=== PATIENT | male | born 1945 ===

== ENCOUNTER → 2022-04-29 14:47 | Outpatient (BNVA) | payer SELFPAY | PROVIDERS: PCP Family Medicine; Visit Provider Family Medicine | DX: Z00.00 Encounter for general adult medical examination without abnormal findings (principal); N40.0 Benign prostatic hyperplasia without lower urinary tract symptoms | CPT/HCPCS: 80053; 80061 ==

== ENCOUNTER → 2022-05-11 12:08 | Outpatient (BNVA) | payer MEDICARE, SELFPAY | PROVIDERS: PCP Family Medicine; Visit Provider Clinical Nurse Specialist Adult Health | DX: R35.0 Frequency of micturition (principal); N30.00 Acute cystitis without hematuria | CPT/HCPCS: 81000; 87086 ==

== ENCOUNTER → 2023-07-11 12:29 | Outpatient (BNVA) | payer MEDICARE, SELFPAY | PROVIDERS: PCP Family Medicine; Visit Provider Family Medicine | DX: Z00.00 Encounter for general adult medical examination without abnormal findings (principal); Z13.6 Encounter for screening for cardiovascular disorders; E03.9 Hypothyroidism, unspecified | CPT/HCPCS: 80053; 80061; 82607; 84443; 85025 ==

== ENCOUNTER → 2024-08-02 10:25 | Outpatient (BNVA) | payer MEDICARE, SELFPAY | PROVIDERS: PCP Family Medicine; Visit Provider Family Medicine | DX: Z00.00 Encounter for general adult medical examination without abnormal findings (principal) | CPT/HCPCS: 80053; 80061 ==

== ENCOUNTER → 2024-11-08 09:47 | Outpatient (BNVA) | payer MEDICARE, SELFPAY | PROVIDERS: PCP Family Medicine | DX: J06.9 Acute upper respiratory infection, unspecified (principal) | CPT/HCPCS: 87400; 87426 ==

== ENCOUNTER 2024-11-12 11:14 | Inpatient (IN) | payer MEDICARE, SELFPAY ==
[2024-11-12] VITALS (19 sets, daily range): BP systolic 92–160; BP diastolic 61–95; PULSE 84–121; RESP 16–18; TEMP 37.2–39.5; O2SAT 90–94; BMI 24.4; BMI 24.8
--- NOTE | 2024-11-12 11:23 | XRR_ITS ---
PROCEDURE INFORMATION: Exam: XR Chest Exam date and time: 11/12/2024 11:32 AM Age: 78 years old Clinical indication: Other: Weakness TECHNIQUE: Imaging protocol: Radiologic exam of the chest. Views: 1 view. COMPARISON: No relevant prior studies available. FINDINGS: Lungs: Suboptimal pulmonary expansion with associated accentuation of bronchovascular markings. Mild ill-defined basilar pulmonary opacities are nonspecific in the setting. Mild left basilar pneumonitis can not be excluded. Pleural spaces: No pleural effusion. Heart/Mediastinum: Cardiomediastinal contours accentuated by low lung volumes and AP technique. Bones/joints: Moderate degenerative change present in the spine. XR/XR chest 1V portable [id number] IMPRESSION: Limited technique with low lung volumes; mild left basilar pneumonitis can not be excluded.
[2024-11-12 11:57] LABS: Basophils % 0.3 %; Hematocrit 46.4 % (37-53); Lymphocytes # 0.6 10^3/uL (0.8-4.8); Mean Corpuscular HGB Conc 33.8 g/dL (30-55); Mean Corpuscular Hemoglobin 26.7 pg (27-33); Mean Corpuscular Volume 78.9 fl (82-101); Mean Platelet Volume 11.1 fL (7.4-10.4); Monocytes # 0.2 10^3/uL (0.2-0.9); Monocytes % 6.1 %; Neutrophils # 2.88 10^3/uL (1.8-7.7); Neutrophils % 76.3 %; Nucleated Red Blood Cells % 0 %; Platelet Count 49 10^3/cmm (157-399); Red Blood Count 5.88 10^6/uL (3.85-5.65); Red Cell Distribution Width 14.4 % (12.1-15.1); White Blood Count 3.77 10^3/uL (3.29-11.43)
--- NOTE | 2024-11-12 11:59 | ECG_ITS ---
[facility] Test Date: 2024-11-12 Pat Name: Wilder Somers Department: Room: Gender: Male Stone Cutter: : 1945 Requested By: Olga Jefferson Order Number: [id number] Angie MD: Jason Starks M.D. Measurements Intervals [place] Rate: 79 P: 76 DE: 147 QRS: 89 QRSD: 90 T: 71 QT: 321 QTc: 369 Interpretive Statements SINUS RHYTHM No previous ECG available for comparison Electronically Signed On 11-12-2024 21:55:53 CDT by Jason Starks M.D. [email or web address]
[2024-11-12 12:24] LABS: Alanine Aminotransferase 176 U/L (0-41); Albumin Level 3.1 g/dL (3.5-5.2); Alkaline Phosphatase 187 U/L (40-130); Anion Gap 15.5 (5-19); Aspartate Amino Transferase 215 U/L (0-40); Blood Urea Nitrogen 18 mg/dL (8-23); Calcium 7.9 mg/dL (8.5-10.5); Carbon Dioxide 23 mmol/L (22-29); Chloride 94 mmol/L (98-107); Creatinine Clr Calc Pharmacy 69.3165; Glucose 114 mg/dL (65-115); Lipase 20 U/L (13-60); Osmolality Calculated 269 mOsm/kg (285-295); Potassium 4.5 mmol/L (3.5-5.1); Sodium 128 mmol/L (136-145); Thyroid Stimulating Hormone 4.58 uIU/mL (0.27-4.20); Total Bilirubin 0.7 mg/dL (0.15-1.2); Total Protein 6.1 g/dL (6.6-8.7)
[2024-11-12 12:29] LABS: Slide Review Slide Review Perform
[2024-11-12 12:43] LABS: Creatine Phosphokinase 130 U/L (39-308)
[2024-11-12 12:50] LABS: Procalcitonin 0.84 ng/mL (0-0.5)
[2024-11-12 13:00] LABS: Lactic Sepsis W/Reflex 1.9 mmol/L (0.5-2.2)
--- NOTE | 2024-11-12 13:50 | ED_ITS ---
HPI - Weakness 2 General: Chief complaint: Weakness Stated complaint: weakness, nausea, dehydration Time Seen by Provider: 11/12/24 13:28 History of Present Illness: 78-year-old male presents emergency room fever and shortness of breath. Patient nonproductive cough he was seen last week tested for COVID which she reports was negative he still having symptoms his symptoms gotten progressively worse. Vomited 4 times today's still feeling very nauseous. Denies any chest pain. Is otherwise quite healthy man. Associated symptoms: Denies chest pain, chills, dysuria or fever(s) Review of Systems 2 Const: Denies: fever(s) or chills Card: Denies: chest pain Resp: Reports: dyspnea and non-productive cough GI: Denies: abdominal pain : Denies: dysuria, urinary frequency or urinary urgency Musc: Denies: neck pain or back pain Skin/Breast: Denies: rash PFSH ED 2 PFSH: Medical History Prostatic hypertrophy Surgical History Hx of cataract surgery Family History Other CAD (coronary artery disease) Denies family history of Diabetes Hyperlipidemia Hypertension Social History Smoking and tobacco/nicotine status: never used tobacco/nicotine Alcohol intake: current Alcohol intake frequency: holidays/special occasions only Physical Exam 2 Const: GENERAL APPEARANCE: cooperative ORIENTATION/CONSCIOUSNESS: Yes awake, Yes oriented to person, Yes oriented to place and Yes oriented to time HENMT: COMMON NORMALS: normocephalic, atraumatic and hearing grossly normal bilaterally HEAD & SCALP: normocephalic and atraumatic Resp: COMMON NORMALS: normal respiratory effort, No retractions, No use of accessory muscles and clear to auscultation bilaterally AUSCULTATION: clear to auscultation bilaterally Cardio: COMMON NORMALS: regular rate, regular rhythm and No murmurs present (Cardio) RATE: regular rate RHYTHM: regular rhythm GI: COMMON NORMALS: Soft to palpation and No hepatosplenomegaly present A USCULTATION: Yes normoactive bowel sounds PALPATION: Yes Soft to palpation, No Tenderness to palpation present (GI), No Guarding due to palpation present (GI) and Yes No hepatosplenomegaly present Extremity: COMMON NORMALS: normal to inspection, capillary refill normal, no clubbing, cyanosis or edema, no calf tenderness and no pedal edema Neuro: SENSORIUM/ORIENTATION: Yes oriented to person, Yes oriented to place and Yes oriented to time Skin: COMMON NORMALS: no rashes or lesions noted GENERAL SKIN EXAM: no rashes or lesions noted Course 2 Vital Signs: Vital signs: Vital Signs Temperature 98.1 F 11/13/24 03:37 Pulse Rate 76 11/13/24 03:37 Respiratory Rate 17 11/13/24 03:37 Blood Pressure 126/72 11/13/24 03:37 Pulse Oximetry 94 11/13/24 03:37 Oxygen Delivery Me thod Room Air 11/12/24 21:03 Oxygen Flow Rate 2 11/12/24 19:40 MDM - Weakness Medical Decision Making No leukocytosis. Patient has trace bilateral pleural fluid on his CT. Chest x- ray shows mild left basilar pneumonitis. Liver enzymes are elevated but gallbladder ultrasound was negative. No other liver abdominal pathology noted on CT of the abdomen. He is not requiring oxygen however he does not normally at his baseline. Will place him on observation started on IV antibiotics. BUN/creatinine normal. Patient did have some mild ketones in his urine. Patient has some mild hyponatremia as well as thrombocytopenia with a platelet count of 48. He denies a drinking. Admit patient started IV antibiotics. Fluids initiated in the emergency room. Also added tick panel which is a send out hepatitis panel was negative. Flu COVID RSV also negative. Lab Data 11/13/24 05:08 11/13/24 05:08 Radiology Impressions Chest X-Ray 11/12/24 11:23 IMPRESSION: Limited technique with low lung volumes; mild left basilar pneumonitis can not be excluded. Abdomen/Pelvis CT 11/12/24 13:58 IMPRESSION: 1. Markedly enlarged prostate. Recommend correlation PSA. 2. Mild hepatomegaly with fatty liver. 3. Trace bilateral pleural fluid with bibasilar atelectasis. 4. 6 mm enhancing pancreatic lesion. Recommend 6-month follow-up contrast- enhanced CT abdomen pelvis with pancreatic protocol. 5. Rectosigmoid constipation. 6. RIGHT renal cyst measuring two-point 6:00 p.m. 7. Small esophageal hiatal hernia. Gallbladder Ultrasound 11/12/24 13:59 IMPRESSION: 1. Negative gallbladder. 2. No hepatobiliary duct dilatation. Laboratory Results WBC 3.77 10^3/uL (3.29-11.43) 11/12/24 11:49 RBC 5.88 10^6/uL (3.85-5.65) H 11/12/24 11:49 Hgb 15.70 g/dL (11.27-16.99) 11/12/24 11:49 Hct 46.4 % (37-53) 11/12/24 11:49 MCV 78.9 fl (82-101) L 11/12/24 11:49 MCH 26.7 pg (27-33) L 11/12/24 11:49 MCHC 33.8 g/dL (30-55) 11/12/24 11:49 RDW 14.4 % (12.1-15.1) 11/12/24 11:49 Plt Count 49 10^3/cmm (157-399) L 11/12/24 11:49 MPV 11.1 fL (7.4-10.4) H 11/12/24 11:49 Neut % (Auto) 76.3 % 11/12/24 11:49 Lymph % (Auto) 17.0 % 11/12/24 11:49 [place] % (Auto) 6.1 % 11/12/24 11:49 Eos % (Auto) 0.0 % 11/12/24 11:49 Baso % (Auto) 0.3 % 11/12/24 11:49 Neut # (Auto) 2.88 10^3/uL (1.8-7.7) 11/12/24 11:49 Lymph # (Auto) 0.6 10^3/uL (0.8-4.8) L 11/12/24 11:49 [place] # (Auto) 0.2 10^3/uL (0.2-0.9) 11/12/24 11:49 Eos # (Auto) 0.0 10^3/uL (0.0-0.8) 11/12/24 11:49 Baso # (Auto) 0.0 10^3/uL (0.0-0.1) 11/12/24 11:49 Nucleated RBC % (auto) 0 % 11/12/24 11:49 Nucleated RBCs # 0.0 /100WBC 11/12/24 11:49 Sodium 128 mmol/L (136-145) L 11/12/24 11:49 Potassium 4.5 mmol/L (3.5-5.1) 11/12/24 11:49 Chloride 94 mmol/L (98-107) L 11/12/24 11:49 Carbon Dioxide 23 mmol/L (22-29) 11/12/24 11:49 Anion Gap 15.5 (5-19) 11/12/24 11:49 BUN 18 mg/dL (8-23) 11/12/24 11:49 Creatinine 1.0 mg/dL (0.7-1.2) 11/12/24 11:49 GFR Calculation Not Reportable 11/12/24 11:49 Glucose 114 mg/dL (65-115) 11/12/24 11:49 Estimat Average Glucose 131 11/12/24 11:49 Hemoglobin A1c 6.2 % (4.0-6.0) H 11/12/24 11:49 Calculated Osmolality 269 mOsm/kg (285-295) L 11/12/24 11:49 Lactic Acid 2.0 mmol/L (0.5-2.2) 11/12/24 15:40 Calcium 7.9 mg/dL (8.5-10.5) L 11/12/24 11:49 Total Bilirubin 0.7 mg/dL (0.15-1.2) 11/12/24 11:49 AST 215 U/L (0-40) H 11/12/24 11:49 ALT 176 U/L (0-41) H 11/12/24 11:49 Alkaline Phosphatase 187 U/L (40-130) H 11/12/24 11:49 Creatine Kinase 130 U/L (39-308) 11/12/24 11:49 C-Reactive Protein 121.3 mg/L (0.0-4.9) H 11/12/24 11:49 Total Protein 6.1 g/dL (6.6-8.7) L 11/12/24 11:49 Albumin 3.1 g/dL (3.5-5.2) L 11/12/24 11:49 Globulin 3.0 g/dL (1.3-4.6) 11/12/24 11:49 Lipase 19 U/L (13-60) 11/12/24 11:49 Lipase 20 U/L (13-60) 11/12/24 11:49 Lipase 20 U/L (13-60) 11/12/24 11:49 Procalcitonin 0.84 ng/mL (0-0.5) H 11/12/24 11:49 TSH 4.58 uIU/mL (0.27-4.20) H 11/12/24 11:49 Urine Color Dark yellow (Yellow) A 11/12/24 13:30 Urine Appearance Cloudy (CLEAR) A 11/12/24 13:30 Urine pH 5.5 (5-7) 11/12/24 13:30 Ur Specific [place] 1.031 (1.005-1.030) H 11/12/24 13:30 Urine Protein 2+ (Negative) A 11/12/24 13:30 Urine Glucose (UA) Negative (Normal) 11/12/24 13:30 Urine Ketones 2+ (Negative) H 11/12/24 13:30 Urine Blood 1+ (Negative) A 11/12/24 13:30 Urine Nitrate Negative (Negative) 11/12/24 13:30 Urine Bilirubin 1+ (Negative) H 11/12/24 13:30 Urine Urobilinogen 1.0 mg/dL (Negative) 11/12/24 13:30 Ur Leukocyte Esterase Trace (Negative) A 11/12/24 13:30 Urine RBC 0-2 /hpf (0-2) 11/12/24 13:30 Urine WBC 0-5 /hpf (0-5) 11/12/24 13:30 Ur Squamous Epith Cells 6-10 /hpf (0-5) 11/12/24 13:30 Amorphous Sediment Not Reportable 11/12/24 13:30 Urine Bacteria None seen /hpf (NONE) 11/12/24 13:30 Hyaline Casts 12.41 /lpf 11/12/24 13:30 Hep Bs Antigen Non-reactive (Nonreactive) 11/12/24 17:35 Hep B Core IgM Ab Non-reactive (Nonreactive) 11/12/24 17:35 Hepatitis C Antibody Non-reactive (Nonreactive) 11/12/24 17:35 HIV 1&2 Ab & HIV 1 Ag Non-reactive (Non-Reactiv) 11/12/24 11:49 HIV 1&2 Antibody Non-reactive (Non-Reactiv) 11/12/24 11:49 Influenza A (PCR) Negative (Negative) 11/12/24 15:35 Influenza Type B (PCR) Negative (Negative) 11/12/24 15:35 RSV (PCR) Negative (Negative) 11/12/24 15:35 SARS-CoV-2 (PCR) Negative (Negative) 11/12/24 15:35 All radiology interpretation(s) finalized by discharge Discharge Plan Discharge Patient Disposition: Admitted As Inpatient Admit Provider: Harjinder Villareal Clinical Impression: Pneumonia, Hyponatremia, Elevated liver enzymes, Thrombocytopenia, Hypoxia Condition: Stable Coding Level of Care Code ED 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
--- NOTE | 2024-11-12 13:58 | CT_ITS ---
WS: [id number] CT ABDOMEN PELVIS TECHNIQUE: Contrast-enhanced CT of the abdomen and pelvis with coronal and sagittal reformatted images. CLINICAL INFORMATION: abd pain COMPARISON: None. DLP: 647.[address] scans at [facility] use at least one of these dose optimization techniques: automated exposure control; mA and/or kV adjustment per patient size (includes targeted exams where dose is matched to clinical indication); or iterative reconstruction. FINDINGS: Fatty liver. Normal spleen. Small esophageal hiatal hernia. Normal portal vein and splenic vein. Small enhancing lesion in the pancreas measuring 6 mm. Adrenal glands are normal. Celiac and SMA are patent. Tiny pleural effusions. Slight bibasilar atelectasis RIGHT greater than LEFT. Normal renal parenchymal enhancement. No hydronephrosis. RIGHT renal cyst. Normal caliber abdominal aorta. Aortic calcification. Markedly enlarged prostate measuring 6.9 cm. Rectosigmoid constipation. Sigmoid diverticulosis. No evidence of acute diverticulitis. Fat-containing LEFT inguinal hernia. CT/CT abdomen pelvis w con* [id number] IMPRESSION: 1. Markedly enlarged prostate. Recommend correlation PSA. 2. Mild hepatomegaly with fatty liver. 3. Trace bilateral pleural fluid with bibasilar atelectasis. 4. 6 mm enhancing pancreatic lesion. Recommend 6-month follow-up contrast-enha nced CT abdomen pelvis with pancreatic protocol. 5. Rectosigmoid constipation. 6. RIGHT renal cyst measuring two-point 6:00 p.m. 7. Small esophageal hiatal hernia.
[2024-11-12 13:59] LABS: Bilirubin Urine 1+ (Negative); Blood Urine 1+ (Negative); Glucose Urine UA Negative (Normal); Ketones Urine 2+ (Negative); Leukocyte Esterase Urine Trace (Negative); Nitrate Urine Negative (Negative); Protein Urine 2+ (Negative); Urine Appearance Cloudy (CLEAR); Urine Color Dark Yellow (Yellow); pH Urine 5.5 (5-7)
--- NOTE | 2024-11-12 13:59 | US_ITS ---
WS: [id number] RIGHT UPPER QUADRANT ULTRASOUND HISTORY: elevated LFTs COMPARISON: CT 11/12/2024 Liver: 15.4 cm in length. Normal size liver and echogenicity. No bile duct dilatation or mass. Portal Vein: Normal hepatopetal flow with monophasic waveform. Gallbladder: Normally distended gallbladder with no stones or wall thickening. CBD: 0.4 cm Pancreas: Obscured. Right kidney: 9.4 cm in length. Normal size and echogenicity. No hydronephrosis or mass. Aorta and IVC: Unremarkable abdominal aorta and IVC. No ascites. US/US gall bladder [id number] IMPRESSION: 1. Negative gallbladder. 2. No hepatobiliary duct dilatation.
[2024-11-12 14:04] LABS: Add Urine Microscopic? YES; Bacteria Urine None Seen /hpf; Hyaline Casts Urine 12.41 /lpf; RBC Urine 0-2 /hpf (0-2); WBC Urine 0-5 /hpf (0-5)
[2024-11-12 14:13] LABS: Specific Gravity, Urine 1.031 (1.005-1.030)
[2024-11-12] MEDS: iohexol 350 mg/mL 500 mL Btl (per mL) IV (14:19)
[2024-11-12 14:32] LABS: Lipase 20 U/L (13-60)
--- NOTE | 2024-11-12 15:52 | PC.NURSE ---
O2 sat dropping to 88%, placed pt on 2L NC, saturation improved to 92%
[2024-11-12 16:32] LABS: Influenza A NEGATIVE (Negative); Influenza B NEGATIVE (Negative); Respiratory Syncytial Virus Ce NEGATIVE (Negative); SARS-CoV-2 PCR NEGATIVE (Negative)
[2024-11-12] MEDS: sodium chloride 0.9% 1,000 ML 999 ML IV (16:53)
--- NOTE | 2024-11-12 17:44 | P.HP_ITS ---
Providers/Chief Complaint 2 Primary Care Provider: Moose Olivas DO Chief Complaint: weakness, nausea, dehydration History of Present Illness Wilder Somers is a 78 year old male with past medical history of BPH, who presents [facility] due to a few day history of fevers, fatigue, malaise, confusion, cough. Currently patient is alert oriented x 3, following all commands, responses are bit delayed, does look a bit dazed, he is having a fever, according to patient and his , for the last few days he has been having fevers, fatigue, malaise, he has had nauseous episodes, does report history of tick bite, a few days ago, in his right leg, no other rashes but is not uncommon for him to have ticks, he does report neck pain, and stiffness, no chest pain, no palpitations, no dysuria, no flank pain, abdominal pain, no diarrhea, recent travel, no sick contacts, has not had his pneumonia vaccination, did receive the first Moderna vaccine. He was seen in the walk-in clinic 11/08/2024 complaining of fevers, headache, nonproductive cough, Review of Systems 2 Const: Reports: fever(s), chills, fatigue and malaise Card: Denies: chest pain Resp: Denies: dyspnea GI: Reports: nausea and vomiting; Denies: abdominal pain : Denies: flank pain Musc: Reports: neck pain; Denies: back pain Neuro: Reports: confusion; Denies: headache(s), numbness in extremities, weakness in extremities or dizziness Medications/Allergies Home Medications ?Medication ?Instructions ?Recorded ?Confirmed ?Last Taken ?Type mupirocin 2 % topical ointment 1 applic topical BID [place] N Skin 11/12/24 11/12/24 Unknown History Irritation tamsulosin 0.4 mg capsule 0.4 mg PO QPM prostate 11/1211/12/24 11/11/24 History Allergies Allergy/AdvReac Type Severity Reaction Status Date / Time No Known Allergies Allergy Verified 11/08/24 09:40 PFSH Acute 2 PFSH: Medical History Prostatic hypertrophy Surgical History Hx of cataract surgery Family History Other CAD (coronary artery disease) Denies family history of Diabetes Hyperlipidemia Hypertension Social History Smoking and tobacco/nicotine status: never used tobacco/nicotine Alcohol intake: current Alcohol intake frequency: holidays/special occasions only Vitals/I&O/Wt Last Vital Signs Temp 102.5 F H 11/12/24 11:52 Pulse 110 H 11/12/24 17:36 Resp 16 11/12/24 17:36 BP 137/84 11/12/24 17:36 Pulse Ox 92 11/12/24 17:36 O2 Del Method Nasal Cannula 11/12/24 16:53 O2 Flow Rate 2 11/12/24 16:53 Weight last 48 hrs Weight 81.647 kg Physical Exam 2 Const: COMMON NORMALS: no acute distress and patient oriented x3 HENMT: COMMON NORMALS: normocephalic HEAD & SCALP: normocephalic Eye: COMMON NORMALS: Equal, round and reactive pupils present and EOMs intact bilaterally Neck/C-Spine: COMMON NORMALS: no JVD Lymph: LYMPHATIC: no lymphadenopathy noted OTHER: Nuchal rigidity present kernig sign negative brudunki negative Resp: COMMON NORMALS: normal respiratory effort, No retractions, No use of accessory muscles and clear to auscultation bilaterally AUSCULTATION: clear to auscultation bilaterally Cardio: COMMON NORMALS: no JVD, regular rate, regular rhythm, S1 normal heart sound present and S2 normal heart sound present RATE: regular rate RHYTHM: regular rhythm HEART SOUNDS: S1 normal heart sound present and S2 normal heart sound present GI: COMMON NORMALS: Normal to inspection, nondistended, normoactive bowel sounds present, Soft to palpation and non-tender Extremity: COMMON NORMALS: no calf tenderness and no pedal edema Neuro: COMMON NORMALS: patient oriented x3 and CN's II-XII intact bilaterally Psych: COMMON NORMALS: mental status grossly normal Skin: NARRATIVE SKIN EXAM: Sepsis examination DP PT pulses palpable, cap refill less than 2 seconds, no mottling, patient is septic, sepsis examination done 11/12/2024 at 5 PM Data 11/12/24 11:49 11/12/24 11:49 Micro: Microbiology 11/12/24 15:43 Blood Culture - Preliminary Blood SPECIMEN COLLECTED 11/12/24 15:40 Blood Culture - Preliminary Blood SPECIMEN COLLECTED A&P Assessment and plan (1) Tick-borne encephalitis: (2) Meningitis: (3) Pneumonia: (4) Acute encephalopathy: (5) Thrombocytopenia: (6) Transaminitis: (7) Sepsis: (8) Hyponatremia: Plan Acute hyponatremia - Likely secondary to dehydration - Monitor on IV fluids Thrombocytopenia - Likely from tickborne illness - HIV, acute hep panel - Monitor Acute encephalopathy - Multifactorial - Tickborne illness, concerns for tickborne encephalitis - Other possibilities include bacterial meningitis - Pneumonia - Monitor mentation Tickborne illness - Concern for tickborne encephalitis - With thrombocytopenia, transaminitis, tick bite Plan - Tick panel ordered - Start doxycycline Acute bacterial meningitis - Patient has encephalopathy, - Nuchal rigidity - Fevers, headache Plan - Vancomycin - Ceftriaxone - Ampicillin - Start Decadron - Ordered lumbar puncture - Monitor mentation closely Concerns for pneumonia - See chest x-ray shows bibasilar atelectasis, but no focal consolidation - Is requiring 2 L - Sputum culture - Blood culture - Vanco mycin - Ceftriaxone Full code SCDs for DVT prophylaxis, Lovenox relatively contraindicated given thrombocytopenia PDMP PDMP Reviewed: Not Reviewed Attestations 2 Medical Necessity Statement*: Patient requires hospitalization, inpatient, greater than 2 midnights, for meningitis, tickborne illness, tickborne encephalitis, pneumonia, transaminitis, thrombocytopenia Diagnoses 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
[2024-11-12] MEDS: dexamethasone 10 mg/mL INJ IVP ×2 (17:55→22:51)
[2024-11-12] MEDS: VANCOMYCIN ADD-Vantage 1,000 MG in 0.9% NaCl ADD-Vantage 250 ML 250 MG IV (17:58)
[2024-11-12 18:07] LABS: C Reactive Protein 121.3 mg/L (0.0-4.9); Lipase 19 U/L (13-60)
[2024-11-12] MEDS: acetaminophen 325 mg Tablet 650 MG PO (18:48)
[2024-11-12] MEDS: cefTRIAXone 2,000 mg SDV 2000 MG IVP (18:49)
[2024-11-12] MEDS: ampicillin 2,000 MG in sodium chloride 0.9% (plus) 50 ML 100 MG IV ×2 (18:57→21:53)
[2024-11-12 19:04] LABS: HIV 1 & 2 Antibody Non-Reactive (Non-Reactiv); HIV 1 & 2 Antigen Non-Reactive (Non-Reactiv)
[2024-11-12] MEDS: sodium chloride 0.9% 1,000 ML 125 ML IV (19:31)
[2024-11-12] MEDS: pantoprazole 40 mg SDV IVP (19:36)
[2024-11-12] MEDS: tamsulosin 0.4 mg Capsule PO (19:36)
[2024-11-12] MEDS: doxycycline 100 MG in sodium chloride 0.9% (plus) 100 ML IV (19:36)
[2024-11-12 20:48] LABS: Estmated Average Glucose 131; Hemoglobin A1C 6.2 % (4.0-6.0)
--- NOTE | 2024-11-12 21:22 | PHA.VACGOAL ---
Vancomycin Goal - Goal Vancomycin Goal:: 15-20 mg/L Vancomycin Indication:: Pneumonia - Therapy Current therapy:: Ampicillin IV, Other Antibiotic (CEFTRIAXONE/DOXYCYCLINE) Day of therpy:: Day [1]of [] Actual body weight (kg): 83.007 kg - Data Labs: WBC 3.77 10^3/uL (3.29-11.43) 11/12/24 11:49 RBC 5.88 10^6/uL (3.85-5.65) H 11/12/24 11:49 Hgb 15.70 g/dL (11.27-16.99) 11/12/24 11:49 Hct 46.4 % (37-53) 11/12/24 11:49 MCV 78.9 fl (82-101) L 11/12/24 11:49 MCH 26.7 pg (27-33) L 11/12/24 11:49 MCHC 33.8 g/dL (30-55) 11/12/24 11:49 RDW 14.4 % (12.1-15.1) 11/12/24 11:49 Sodium 128 mmol/L (136-145) L 11/12/24 11:49 Potassium 4.5 mmol/L (3.5-5.1) 11/12/24 11:49 Chloride 94 mmol/L (98-107) L 11/12/24 11:49 Carbon Dioxide 23 mmol/L (22-29) 11/12/24 11:49 Anion Gap 15.5 (5-19) 11/12/24 11:49 BUN 18 mg/dL (8-23) 11/12/24 11:49 Creatinine 1.0 mg/dL (0.7-1.2) 11/12/24 11:49 GFR Calculation Not Reportable 11/12/24 11:49 Treatment plan:: new consult Regimen:: New start vancomycin for pneumonia. No prior vancomycin history found. Started on maintenance dose of 1000 mg q12h.
[2024-11-12 21:31] LABS: Hepatitis B Core IgM Non-Reactive (Nonreactive); Hepatitis B Surface Antigen Non-Reactive (Nonreactive); Hepatitis C Virus Antibody Non-Reactive (Nonreactive)
[2024-11-13] VITALS (8 sets, daily range): BP systolic 121–136; BP diastolic 68–79; PULSE 70–97; RESP 16–18; TEMP 36.6–37.3; O2SAT 90–94
[2024-11-13] MEDS: ampicillin 2,000 MG in sodium chloride 0.9% (plus) 50 ML 100 MG IV ×6 (01:18→21:13)
[2024-11-13] MEDS: sodium chloride 0.9% 1,000 ML 125 ML IV ×2 (04:44)
[2024-11-13] MEDS: dexamethasone 10 mg/mL INJ IVP ×4 (04:48→23:12)
[2024-11-13] MEDS: VANCOMYCIN ADD-Vantage 1,000 MG in 0.9% NaCl ADD-Vantage 250 ML 250 MG IV ×2 (04:49→18:11)
[2024-11-13 05:20] LABS: Basophils % 0.2 %; Lymphocytes # 1.3 10^3/uL (0.8-4.8); Lymphocytes % 23.6 %; Mean Corpuscular HGB Conc 33.8 g/dL (30-55); Mean Corpuscular Hemoglobin 27.3 pg (27-33); Mean Corpuscular Volume 80.6 fl (82-101); Mean Platelet Volume 12.2 fL (7.4-10.4); Monocytes # 0.3 10^3/uL (0.2-0.9); Neutrophils # 3.99 10^3/uL (1.8-7.7); Neutrophils % 70.7 %; Nucleated Red Blood Cells % 0 %; Platelet Count 48 10^3/cmm (157-399); Red Blood Count 5.21 10^6/uL (3.85-5.65); Red Cell Distribution Width 14.5 % (12.1-15.1); White Blood Count 5.64 10^3/uL (3.29-11.43)
[2024-11-13 05:36] LABS: Alanine Aminotransferase 181 U/L (0-41); Albumin Level 2.6 g/dL (3.5-5.2); Alkaline Phosphatase 147 U/L (40-130); Anion Gap 15.2 (5-19); Aspartate Amino Transferase 216 U/L (0-40); Blood Urea Nitrogen 24 mg/dL (8-23); Calcium 7.1 mg/dL (8.5-10.5); Carbon Dioxide 21 mmol/L (22-29); Chloride 99 mmol/L (98-107); Creatinine Clr Calc Pharmacy 63.4477; Globulin 2.6 g/dL (1.3-4.6); Glucose 154 mg/dL (65-115); Osmolality Calculated 279 mOsm/kg (285-295); Potassium 4.2 mmol/L (3.5-5.1); Sodium 131 mmol/L (136-145); Total Protein 5.2 g/dL (6.6-8.7)
[2024-11-13 05:46] LABS: Slide Review Slide Review Perform
[2024-11-13] MEDS: cefTRIAXone 2,000 mg SDV 2000 MG IVP ×2 (06:08→18:04)
[2024-11-13] MEDS: acetaminophen 325 mg Tablet 650 MG PO (07:48)
[2024-11-13] MEDS: doxycycline 100 MG in sodium chloride 0.9% (plus) 100 ML IV ×2 (08:53→20:36)
--- NOTE | 2024-11-13 09:19 | PC.CHAP ---
Pastoral Care Encounter/Spiritual Assessment Type of Contact [] Declined green end worker visit [] Patient/Family/Request visit [] Outpatient visit [] Follow-up visit [] Physician referral [] Code/Alert [] Routine visit [] Staff referral [] Actively dying [] Patient sleeping [] Family support [] [] Out of room [] Palliative care [] [] Receiving care in room [] Pre-surgical visit [] Trauma [] Long length of stay [] ICU visit [x] Other:Contact precautions. No visit. Relational/Emotional Strength [] Patient feels connected with others/family/visitors/staff [] Distress [] Loneliness/isolation [] Abandonment Spirituality of Patient [] Person of Bhargavi [] Attends Latter Day of their Bhargavi [] Believes in Prayer [] Reads Bible or Faith materials [] There are Spiritual issues to be addressed Bike Technician Interventions [] Prayer [] Active listening [] Non-anxious presence [] Spiritual/emotional support [] Crisis/trauma care [] Spiritual counseling [] Bereavement support [] Provided bereavement packet [] Provided Bible/devotional materials [] Provided toy/stuffed animal, coloring book to patient or family member [] Provided Communion [] Anointing/[place] [] Salvation [] Completed spiritual assessment [] Other: Impact on Illness or Injury [] Angry [] Fearful [] Anxious [] Often cries [] Exhaustion [] Unable to work [] Unable to attend druze [] Unable to walk/stand [] Unable to read [] Unable to drive [] Unable to eat/drink [] Unable to sleep [] Unable to be with family [] Patient intubated [] Other: Summary Time spent with patient
[2024-11-13 09:54] LABS: Hepatitis A Antibody IgM Non-Reactive (Nonreactive)
--- NOTE | 2024-11-13 10:35 | CT_ITS ---
WS: [id number] CT HEAD TECHNIQUE: Noncontrast CT of the head obtained from the skullbase to the vertex. CLINICAL INFORMATION: ams COMPARISON: None. DLP: 1191.[address] scans at [facility] use at least one of these dose optimization techniques: automated exposure control; mA and/or kV adjustment per patient size (includes targeted exams where dose is matched to clinical indication); or iterative reconstruction. FINDINGS: No evidence of intracranial hemorrhage or mass effect. Ventricular system and basal cisterns are patent. Mild small vessel changes with moderate parenchymal volume loss. No extra-axial fluid collections. No evidence of mass or mass effect. Tiny chronic lacunar infarct RIGHT caudate. Paranasal sinuses and mastoid air cells are well aerated. .Normal visualized soft tissues. CT/CT head wo con* [id number] IMPRESSION: 1. No evidence of intracranial hemorrhage or mass effect. 2. No acute intracranial findings.
[2024-11-13 11:44] LABS: Glucose Point of Care 196 mg/dL (70-110)
[2024-11-13 11:46] LABS: Total Bilirubin 0.4 mg/dL (0.15-1.2)
[2024-11-13 12:02] LABS: Appearance CSF CLEAR (CLEAR); CSF Specific Gravity 1.006; Color CSF COLORLESS (COLORLESS)
[2024-11-13 12:03] LABS: Cyto Order Verification No Order
[2024-11-13 12:04] LABS: CSF Mononuclear # 0.079 10^3/uL (50-90); Mononuclear WBC CSF % 96 % (50-90); Polynuclear Cells ,CSF # 0.003 10^3/uL (0-10); Polynuclear WBC CSF % 4 % (0-10); Red Blood Cell CSF 0 10^3/uL (0-0); White Blood Cell CSF 82 /uL (0-5)
[2024-11-13 12:22] LABS: Glucose CSF 63 mg/dL (40-70); Total Protein CSF 63 mg/dL (15-45)
[2024-11-13 12:23] LABS: Pathology Referral Yes
[2024-11-13] MEDS: sodium chloride 0.9% 1,000 ML 50 ML IV (14:11)
--- NOTE | 2024-11-13 17:27 | P.PN_ITS ---
Subjective 2 Subjective: Patient was seen this morning, he is alert oriented x 3, following all commands, denies any fevers, no chills, no cough Discussed with patient he continues to have neck stiffness, neck pain, reports fatigue, malaise, we discussed risk and benefits of lumbar puncture, thrombocytopenia, he voiced understanding, all questions answered, agreed to proceed Vitals/I&O/Wt Last Vital Signs Temp 98.1 F 11/13/24 16:00 Pulse 70 11/13/24 16:00 Resp 18 11/13/24 16:00 BP 128/76 11/13/24 16:00 Pulse Ox 92 11/13/24 15:46 O2 Del Method Nasal Cannula 11/13/24 15:46 O2 Flow Rate 2 11/13/24 11:45 11/13/24 11/13/24 11/13/24 06:59 14:59 22:59 Intake Total 1350 / 2800 1870 / 1870 50 / 1920 Balance 1350 / 2800 1870 / 1870 50 / 1920 Weight last 48 hrs Weight 83.007 kg Weight 83.007 kg Weight 81.647 kg Physical Exam 2 Const: COMMON NORMALS: no acute distress and patient oriented x3 Eye: COMMON NORMALS: Equal, round and reactive pupils present and EOMs intact bilaterally PUPIL: Yes Equal, round and reactive pupils present Neck/C-Spine: OTHER: Neck stiffness Resp: COMMON NORMALS: normal respiratory effort, No retractions, No use of accessory muscles and clear to auscultation bilaterally AUSCULTATION: clear to auscultation bilaterally Cardio: COMMON NORMALS: regular rate, regular rhythm, S1 normal heart sound present and S2 normal heart sound present RATE: regular rate RHYTHM: r egular rhythm HEART SOUNDS: S1 normal heart sound present and S2 normal heart sound present GI: COMMON NORMALS: Normal to inspection, nondistended, normoactive bowel sounds present and non-tender Extremity: COMMON NORMALS: normal to inspection Neuro: COMMON NORMALS: patient oriented x3 Psych: COMMON NORMALS: mental status grossly normal Data 11/13/24 05:08 11/13/24 05:08 Micro: Microbiology 11/12/24 15:43 Blood Culture - Preliminary Blood NEGATIVE TO DATE 11/12/24 15:40 Blood Culture - Preliminary Blood NEGATIVE TO DATE 11/13/24 11:24 Gram Stain - Final Cerebrospinal Fluid A&P Assessment and plan (1) Tick-borne encephalitis: (2) Meningitis: (3) Pneumonia: (4) Acute encephalopathy: (5) Thrombocytopenia: (6) Transaminitis: (7) Sepsis: (8) Hyponatremia: Plan Acute hyponatremia, serum sodium 131 - Likely secondary to dehydration - De-escalate IV fluids Thrombocytopenia - Likely from tickborne illness - HIV, acute hep panel negative - Monitor Acute encephalopathy - Multifactorial - Tickborne illness, concerns for tickborne encephalitis - Other possibilities include bacterial meningitis - Pneumonia - Monitor mentation Tickborne illness - Concern for tickborne encephalitis - With thrombocytopenia, transaminitis, tick bite Plan - Tick panel ordered - Start doxycycline Acute bacterial meningitis - Patient has encephalopathy, - Nuchal rigidity - Fevers, headache Plan - Vancomycin - Ceftriaxone - Ampicillin - Start Decadron - LP ordered, CSF studies ordered - Monitor mentation closely Concerns for pneumonia - See chest x-ray shows bibasilar atelectasis, but no focal consolidation - Is requiring 2 L - Sputum culture - Blood culture - Vancomycin - Ceftriaxone Full code SCDs for DVT prophylaxis, Lovenox relatively contraindicated given thrombocytopenia Plan for today, IV antibiotics, lumbar puncture, follow CSF studies PDMP PDMP Reviewed: Not Reviewed Attestations 2 Medical Necessity Statement*: Patient requires hospitalization for tickborne illness, bacterial meningitis, thrombocytopenia, hyponatremia Diagnoses 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
--- NOTE | 2024-11-13 17:41 | FL_ITS ---
WS: [id number] LUMBAR PUNCTURE UNDER FLUOROSCOPY: OBTAIN CSF FOR ANALYSIS HISTORY: ams COMPARISON: CT head 11/13/2024 FLUOROSCOPY TIME: 0min [id number] # of spot films: 1 Procedure, complications, and risk and benefits explained to the patient. Consent was obtained. Recent laboratory work and medication are reviewed prior to procedure. Skin over the lumbar is cleansed with ChloraPrep and anesthetized with 1% buffered lidocaine. Access into the thecal sac is achieved. CSF is removed in a sterile manner and placed in the sterile tubes. Approximately 11 ml is removed without difficulty. CSF is clear. No complications are encountered. CSF this into the laboratory for analysis as requested. FL/FL guided lumbarpunc dx* [id number] IMPRESSION: Uncomplicated lumbar puncture for CSF.
[2024-11-13] MEDS: pantoprazole 40 mg SDV IVP (18:04)
[2024-11-13] MEDS: tamsulosin 0.4 mg Capsule PO (18:04)
[2024-11-13] MEDS: insulin lispro 100 unit/1 mL SUBCUT (18:20)
[2024-11-13 18:25] LABS: Glucose Point of Care 210 mg/dL (70-110)
[2024-11-14] MEDS: ampicillin 2,000 MG in sodium chloride 0.9% (plus) 50 ML 100 MG IV ×6 (01:12→21:41)
[2024-11-14 03:43] VITALS: BP 134/78; PULSE 96; RESP 18; TEMP 36.6; O2SAT 92
[2024-11-14] MEDS: VANCOMYCIN ADD-Vantage 1,000 MG in 0.9% NaCl ADD-Vantage 250 ML 250 MG IV ×2 (05:15→16:59)
[2024-11-14] MEDS: dexamethasone 10 mg/mL INJ IVP ×3 (05:15→16:48)
[2024-11-14] MEDS: cefTRIAXone 2,000 mg SDV 2000 MG IVP ×2 (05:54→16:54)
[2024-11-14 06:01] LABS: Basophils % 0.5 %; Hematocrit 41.6 % (37-53); Lymphocytes % 30.8 %; Mean Corpuscular HGB Conc 34.9 g/dL (30-55); Mean Corpuscular Hemoglobin 27.1 pg (27-33); Mean Corpuscular Volume 77.6 fl (82-101); Mean Platelet Volume 12.8 fL (7.4-10.4); Monocytes # 0.6 10^3/uL (0.2-0.9); Monocytes % 8.8 %; Neutrophils # 3.93 10^3/uL (1.8-7.7); Neutrophils % 59.3 %; Nucleated Red Blood Cells % 0 %; Platelet Count 59 10^3/cmm (157-399); Red Blood Count 5.36 10^6/uL (3.85-5.65); Red Cell Distribution Width 14.7 % (12.1-15.1); White Blood Count 6.62 10^3/uL (3.29-11.43)
[2024-11-14 06:27] LABS: Glucose Point of Care 196 mg/dL (70-110)
[2024-11-14 06:34] LABS: Alanine Aminotransferase 171 U/L (0-41); Albumin Level 2.7 g/dL (3.5-5.2); Alkaline Phosphatase 155 U/L (40-130); Aspartate Amino Transferase 186 U/L (0-40); Blood Urea Nitrogen 22 mg/dL (8-23); Calcium 7.3 mg/dL (8.5-10.5); Carbon Dioxide 21 mmol/L (22-29); Chloride 105 mmol/L (98-107); Creatinine Clr Calc Pharmacy 77.5472; Globulin 2.3 g/dL (1.3-4.6); Glucose 184 mg/dL (65-115); Osmolality Calculated 290 mOsm/kg (285-295); Sodium 136 mmol/L (136-145); Total Bilirubin 0.3 mg/dL (0.15-1.2)
[2024-11-14 06:48] LABS: Slide Review Slide Review Perform
[2024-11-14 07:37] VITALS: BP 154/84; PULSE 70; RESP 17; TEMP 36.4; O2SAT 91
[2024-11-14] MEDS: insulin lispro 100 unit/1 mL SUBCUT ×3 (07:38→16:53)
[2024-11-14] MEDS: doxycycline 100 MG in sodium chloride 0.9% (plus) 100 ML IV ×2 (07:39→20:27)
--- NOTE | 2024-11-14 10:02 | PC.SOCIAL ---
IMM Update pg 2 of IMM Updated and reviewed w/ patient. Copy provided and copy dated, initialed and placed in chart.
[2024-11-14 11:48] VITALS: BP 155/93; PULSE 87; RESP 18; TEMP 36.5; O2SAT 92
[2024-11-14 12:08] LABS: Glucose Point of Care 167 mg/dL (70-110)
[2024-11-14 14:51] LABS: Lyme AB Screen <0.90 index
--- NOTE | 2024-11-14 15:01 | P.PN_ITS ---
Subjective 2 Subjective: Patient was seen this morning, currently alert oriented x 3, following all commands, denies any fevers, no chills, no nausea, no vomiting Vitals/I&O/Wt Last Vital Signs Temp 97.7 F 11/14/24 11:48 Pulse 87 11/14/24 11:48 Resp 18 11/14/24 11:48 BP 155/93 11/14/24 11:48 Pulse Ox 92 11/14/24 11:48 O2 Del Method Room Air 11/14/24 11:48 O2 Flow Rate 2 11/14/24 08:00 11/14/24 11/14/24 11/14/24 06:59 14:59 22:59 Intake Total 350 / 4440.000 920 / 920 Balance 350 / 4440.000 920 / 920 Weight last 48 hrs Weight 83.007 kg Weight 83.007 kg Weight 83.007 kg Physical Exam 2 Const: COMMON NORMALS: no acute distress and patient oriented x3 Resp: COMMON NORMALS: normal respiratory effort, No retractions, No use of accessory muscles and clear to auscultation bilaterally AUSCULTATION: clear to auscultation bilaterally Cardio: COMMON NORMALS: regular rate, regular rhythm, S1 normal heart sound present and S2 normal heart sound present RATE: regular rate RHYTHM: r egular rhythm HEART SOUNDS: S1 normal heart sound present and S2 normal heart sound present GI: COMMON NORMALS: Normal to inspection, nondistended, normoactive bowel sounds present and non-tender Extremity: COMMON NORMALS: no pedal edema Neuro: COMMON NORMALS: patient oriented x3 Psych: COMMON NORMALS: mental status grossly normal Data 11/14/24 05:49 11/14/24 05:49 Micro: Microbiology 11/12/24 15:43 Blood Culture - Preliminary Blood NEGATIVE TO DATE 11/12/24 15:40 Blood Culture - Preliminary Blood NEGATIVE TO DATE 11/13/24 11:24 Gram Stain - Final Cerebrospinal Fluid A&P Assessment and plan (1) Tick-borne encephalitis: (2) Meningitis: (3) Pneumonia: (4) Acute encephalopathy: (5) Thrombocytopenia: (6) Transaminitis: (7) Sepsis: (8) Hyponatremia: Plan Acute hyponatremia, resolved - Likely secondary to dehydration - De-escalate IV fluids Thrombocytopenia, improving - Likely from tickborne illness - HIV, acute hep panel negative - Monitor Acute encephalopathy, resolved - Multifactorial - Tickborne illness, concerns for tickborne encephalitis - Other possibilities include bacterial meningitis - Pneumonia - Monitor mentation Tickborne illness - Concern for tickborne encephalitis - With thrombocytopenia, transaminitis, tick bite Plan - Tick panel ordered - Continue doxycycline Acute bacterial meningitis - Patient has encephalopathy, - Nuchal rigidity - Fevers, headache -Gram stain shows rare gram-positive rods, rare white blood cell -CSF clear, colorless, 82 WBCs, 63 total proteins, 63 glucose, Plan - Vancomycin - Ceftriaxone - Ampicillin - Continue Decadron day 2 for 4 - Monitor mentation closely Concerns for pneumonia - See chest x-ray shows bibasilar atelectasis, but no focal consolidation - Is requiring 2 L - Sputum culture - Blood culture - Vancomycin - Ceftriaxone Prediabetes, A1c 6.2, low-dose sliding scale Full code SCDs for DVT prophylaxis, Lovenox relatively contraindicated given thrombocytopenia Plan for today, IV antibiotics, lumbar puncture, follow CSF studies PDMP PDMP Reviewed: Not Reviewed Attestations 2 Medical Necessity Statement*: Patient requires hospitalization for tickborne illness, concerns for acute bacterial meningitis Diagnoses 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
[2024-11-14 16:00] VITALS: BP 151/87; PULSE 71; RESP 16; TEMP 36.4; O2SAT 94
[2024-11-14 16:31] LABS: Glucose Point of Care 187 mg/dL (70-110)
[2024-11-14] MEDS: tamsulosin 0.4 mg Capsule PO (16:50)
[2024-11-14] MEDS: pantoprazole 40 mg SDV IVP (16:51)
[2024-11-14 20:00] VITALS: BP 161/98; PULSE 91; RESP 17; TEMP 36.7; O2SAT 92
[2024-11-14 20:44] LABS: Glucose Point of Care 189 mg/dL (70-110)
[2024-11-14 23:31] VITALS: BP 156/99; PULSE 74; RESP 17; TEMP 36.5; O2SAT 92
[2024-11-15] VITALS (7 sets, daily range): BP systolic 143–163; BP diastolic 82–97; PULSE 70–104; RESP 16–17; TEMP 36.3–36.8; O2SAT 91–94
[2024-11-15] MEDS: dexamethasone 10 mg/mL INJ IVP ×3 (00:07→11:54)
[2024-11-15] MEDS: ampicillin 2,000 MG in sodium chloride 0.9% (plus) 50 ML 100 MG IV ×6 (02:09→22:18)
[2024-11-15 05:10] LABS: Basophils % 0.3 %; Lymphocytes % 46.8 %; Mean Corpuscular HGB Conc 34.5 g/dL (30-55); Mean Corpuscular Hemoglobin 26.7 pg (27-33); Mean Corpuscular Volume 77.3 fl (82-101); Mean Platelet Volume 12.6 fL (7.4-10.4); Monocytes # 0.5 10^3/uL (0.2-0.9); Monocytes % 7.4 %; Neutrophils # 2.81 10^3/uL (1.8-7.7); Neutrophils % 44.4 %; Nucleated Red Blood Cells % 0 %; Platelet Count 55 10^3/cmm (157-399); Red Blood Count 5.43 10^6/uL (3.85-5.65); Red Cell Distribution Width 14.6 % (12.1-15.1); White Blood Count 6.33 10^3/uL (3.29-11.43)
[2024-11-15 05:23] LABS: Alanine Aminotransferase 149 U/L (0-41); Albumin Level 2.7 g/dL (3.5-5.2); Alkaline Phosphatase 136 U/L (40-130); Anion Gap 14.7 (5-19); Aspartate Amino Transferase 118 U/L (0-40); Blood Urea Nitrogen 20 mg/dL (8-23); Calcium 7.5 mg/dL (8.5-10.5); Carbon Dioxide 22 mmol/L (22-29); Chloride 104 mmol/L (98-107); Creatinine Clr Calc Pharmacy 85.9508; Globulin 2.5 g/dL (1.3-4.6); Glucose 164 mg/dL (65-115); Osmolality Calculated 290 mOsm/kg (285-295); Potassium 3.7 mmol/L (3.5-5.1); Sodium 137 mmol/L (136-145); Total Bilirubin 0.3 mg/dL (0.15-1.2); Total Protein 5.2 g/dL (6.6-8.7)
[2024-11-15 05:47] LABS: Slide Review Slide Review Perform
[2024-11-15] MEDS: cefTRIAXone 2,000 mg SDV 2000 MG IVP ×2 (06:03→17:42)
[2024-11-15] MEDS: vancomycin 1,250 MG/250 ML PIGGYBACK 166.67 MG IV ×2 (06:30→17:42)
[2024-11-15 07:46] LABS: Cytomegalovirus Antibody (IGM) <30.00 AU/mL
[2024-11-15 08:23] LABS: Glucose Point of Care 160 mg/dL (70-110)
[2024-11-15] MEDS: insulin lispro 100 unit/1 mL SUBCUT ×3 (08:33→17:44)
[2024-11-15] MEDS: doxycycline 100 MG in sodium chloride 0.9% (plus) 100 ML IV ×2 (08:35→21:04)
[2024-11-15 11:38] LABS: Glucose Point of Care 172 mg/dL (70-110)
[2024-11-15 14:59] LABS: HSV 1 DNA Not Detected (Not Detected); HSV 2 DNA Not Detected (Not Detected); HSV Source Results Below
--- NOTE | 2024-11-15 16:12 | P.PN_ITS ---
Subjective 2 Subjective: Patient was seen this morning, denies any fevers, no chills, no cough, no nausea, no vomiting, no headache, blurry vision, no neck pain, no neck stiffness Vitals/I&O/Wt Last Vital Signs Temp 97.7 F 11/15/24 15:54 Pulse 81 11/15/24 15:54 Resp 16 11/15/24 15:54 BP 154/91 11/15/24 15:54 Pulse Ox 93 11/15/24 15:54 O2 Del Method Room Air 11/15/24 15:54 O2 Flow Rate 1.5 11/15/24 04:00 11/15/24 11/15/24 11/15/24 06:59 14:59 22:59 Intake Total 340 / 2130 861 / 861 Balance 340 / 2130 861 / 861 Weight last 48 hrs Weight 80.059 kg Weight 83.007 kg Physical Exam 2 Const: COMMON NORMALS: no acute distress and patient oriented x3 Resp: COMMON NORMALS: normal respiratory effort, No retractions, No use of accessory muscles and clear to auscultation bilaterally AUSCULTATION: clear to auscultation bilaterally Cardio: COMMON NORMALS: regular rate, regular rhythm, S1 normal heart sound present and S2 normal heart sound present RATE: regular rate RHYTHM: r egular rhythm HEART SOUNDS: S1 normal heart sound present and S2 normal heart sound present GI: COMMON NORMALS: Normal to inspection, nondistended, normoactive bowel sounds present and non-tender Extremity: COMMON NORMALS: no pedal edema Neuro: COMMON NORMALS: patient oriented x3 Psych: COMMON NORMALS: mental status grossly normal Data 11/15/24 04:32 11/15/24 04:32 Micro: Microbiology 11/13/24 11:24 Gram Stain - Final Cerebrospinal Fluid CSF Culture - Preliminary A&P Assessment and plan (1) Tick-borne encephalitis: (2) Meningitis: (3) Pneumonia: (4) Acute encephalopathy: (5) Thrombocytopenia: (6) Transaminitis: (7) Sepsis: (8) Hyponatremia: Plan Acute hyponatremia, resolved - Likely secondary to dehydration - De-escalate IV fluids Thrombocytopenia, improving - Likely from tickborne illness - HIV, acute hep panel negative - Monitor Acute encephalopathy, resolved - Multifactorial - Tickborne illness, concerns for tickborne encephalitis - Other possibilities include bacterial meningitis - Pneumonia - Monitor mentation Tickborne illness - Concern for tickborne encephalitis - With thrombocytopenia, transaminitis, tick bite Plan - Tick panel ordered - Continue doxycycline Acute bacterial meningitis - Patient has encephalopathy, - Nuchal rigidity - Fevers, headache -Gram stain shows rare gram-positive rods, rare white blood cell -CSF clear, colorless, 82 WBCs, 63 total proteins, 63 glucose, Plan - Vancomycin - Ceftriaxone - Ampicillin - Will shorten Decadron course for 48 hours as CSF cultures remain -48 hours - Monitor mentation closely Concerns for pneumonia - See chest x-ray shows bibasilar atelectasis, but no focal consolidation - Is requiring 2 L - Sputum culture - Blood culture - Vancomycin - Ceftriaxone Prediabetes, A1c 6.2, low-dose sliding scale Full code SCDs for DVT prophylaxis, Lovenox relatively contraindicated given thrombocytopenia Plan for today, IV antibiotics, l PDMP PDMP Reviewed: Not Reviewed Attestations 2 Medical Necessity Statement*: Patient requires hospitalization for tick borne illness, pneumonia, meningitis Diagnoses 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
[2024-11-15 16:26] LABS: Glucose Point of Care 168 mg/dL (70-110)
[2024-11-15] MEDS: pantoprazole 40 mg SDV IVP (17:42)
[2024-11-15] MEDS: tamsulosin 0.4 mg Capsule PO (17:45)
[2024-11-15 20:30] LABS: Glucose Point of Care 199 mg/dL (70-110)
[2024-11-16] MEDS: ampicillin 2,000 MG in sodium chloride 0.9% (plus) 50 ML 100 MG IV ×3 (02:26→07:37)
[2024-11-16 04:00] VITALS: BP 161/91; PULSE 72; RESP 17; TEMP 36.4; O2SAT 91
[2024-11-16] MEDS: cefTRIAXone 2,000 mg SDV 2000 MG IVP (05:28)
[2024-11-16] MEDS: vancomycin 1,250 MG/250 ML PIGGYBACK 166.67 MG IV (05:29)
[2024-11-16 05:40] LABS: Basophils % 0.3 %; Hematocrit 42.9 % (37-53); Lymphocytes # 3.7 10^3/uL (0.8-4.8); Lymphocytes % 53.8 %; Mean Corpuscular HGB Conc 33.1 g/dL (30-55); Mean Corpuscular Hemoglobin 26.6 pg (27-33); Mean Corpuscular Volume 80.5 fl (82-101); Mean Platelet Volume 12.1 fL (7.4-10.4); Monocytes # 0.7 10^3/uL (0.2-0.9); Monocytes % 9.5 %; Neutrophils # 2.47 10^3/uL (1.8-7.7); Neutrophils % 35.7 %; Nucleated Red Blood Cells % 0 %; Platelet Count 55 10^3/cmm (157-399); Red Blood Count 5.33 10^6/uL (3.85-5.65); Red Cell Distribution Width 14.5 % (12.1-15.1); White Blood Count 6.93 10^3/uL (3.29-11.43)
[2024-11-16 06:01] LABS: Alanine Aminotransferase 136 U/L (0-41); Albumin Level 2.6 g/dL (3.5-5.2); Alkaline Phosphatase 125 U/L (40-130); Anion Gap 14.8 (5-19); Aspartate Amino Transferase 88 U/L (0-40); Blood Urea Nitrogen 19 mg/dL (8-23); Calcium 7.5 mg/dL (8.5-10.5); Carbon Dioxide 22 mmol/L (22-29); Chloride 103 mmol/L (98-107); Creatinine Clr Calc Pharmacy 86.9431; Globulin 2.6 g/dL (1.3-4.6); Glucose 165 mg/dL (65-115); Osmolality Calculated 288 mOsm/kg (285-295); Potassium 3.8 mmol/L (3.5-5.1); Sodium 136 mmol/L (136-145); Total Bilirubin 0.4 mg/dL (0.15-1.2); Total Protein 5.2 g/dL (6.6-8.7)
[2024-11-16 06:23] LABS: Glucose Point of Care 170 mg/dL (70-110)
[2024-11-16 07:08] LABS: Slide Review Slide Review Perform
[2024-11-16 07:28] VITALS: BP 156/96; PULSE 69; RESP 16; TEMP 36.6; O2SAT 88
--- NOTE | 2024-11-16 07:29 | PC.NURSE ---
Pt had 2 liters of oxygen running, was not wearing nasal cannula. EDUCATIONAL PSYCHOLOGY PROFESSOR informed pt oxygen was satting at 88. Pt said I am fine, I do not need it .
[2024-11-16] MEDS: doxycycline 100 MG in sodium chloride 0.9% (plus) 100 ML IV (07:36)
[2024-11-16] MEDS: insulin lispro 100 unit/1 mL SUBCUT (07:36)
--- NOTE | 2024-11-16 10:28 | PC.SOCIAL ---
IMM Updated Updated pt on IMM. no questions voiced. Provided pt a copy. Initialed, dated, & timed copy in chart.
[2024-11-16 10:34] LABS: Glucose Point of Care 140 mg/dL (70-110)
[2024-11-16 11:23] VITALS: BP 150/90; PULSE 70; O2SAT 90
--- NOTE | 2024-11-16 12:15 | PM.DCS ---
Discharge Providers Date of Admission: 11/12/24 18:48 Date of Discharge: November 16, 2024 Attending Provider at Admission: Harjinder Villareal MD Attending Provider at Discharge: Harjinder Villareal MD Primary Care Provider: Moose Olivas DO Diagnoses at Discharge Discharge Diagnosis (1) Tick-borne encephalitis: Status: Acute (2) Meningitis: Status: Acute (3) Pneumonia: Status: Acute (4) Acute encephalopathy: Status: Acute (5) Thrombocytopenia: Status: Acute (6) Transaminitis: Status: Acute (7) Sepsis: Status: Acute (8) Hyponatremia: Status: Acute Reason for Visit Reason for Visit: weakness, nausea, dehydration Hospital Course Hospital Course Wilder Somers is a 78 year old male with past medical history of BPH, who presents [facility] due to a few day history of fevers, fatigue, malaise, confusion, cough. Currently patient is alert oriented x 3, following all commands, responses are bit delayed, does look a bit dazed, he is having a fever, according to patient and his , for the last few days he has been having fevers, fatigue, malaise, he has had nauseous episodes, does report history of tick bite, a few days ago, in his right leg, no other rashes but is not uncommon for him to have ticks, he does report neck pain, and stiffness, no chest pain, no palpitations, no dysuria, no flank pain, abdominal pain, no diarrhea, recent travel, no sick contacts, has not had his pneumonia vaccination, did receive the first Moderna vaccine. He was seen in the walk-in clinic 11/08/2024 complaining of fevers, headache, nonproductive cough, Patient was admitted to [facility] for tickborne illness, tickborne encephalitis, pneumonia, transaminitis, thrombocytopenia, received broad-spectrum antibiotic therapy, IV steroids, and clinically monitored For tickborne illness, tickborne encephalitis, received doxycycline, overall clinically improved, mentation improved, tick panel is pending at discharge discharged on 10 remaining days of doxycycline For his thrombocytopenia, likely associated with tickborne illness, no clinical evidence of bleeding, discussed with followed up with primary care provider as outpatient recheck platelet count in 1 week, if any signs of bleeding please come back to the emergency room For transaminitis, likely associate with tickborne illness, discussed with patient to follow-up with primary care provider as outpatient, recheck platelet count in 1 week There was concerns for meningitis during his hospitalization, status post lumbar puncture, CSF culture so far no growth, although his Gram stain did show rare gram-positive rods. I had a detailed discussion with patient, as cultures remain unremarkable, this could be a contamination, as he remains afebrile, clinically improving, no nuchal rigidity, no headache, no blurry vision, I think the likelihood of bacterial meningitis is fairly unlikely. Nonetheless if his cultures do start to grow bacteria or he develops headaches or blurry vision or nuchal rigidity to immediately come back to the emergency room. For his pneumonia, managed with IV antibiotics during his hospitalization, he was discharged on Levaquin, did not require oxygen on discharge For his 6 mm enhancing pancreatic lesion, follow-up with GI in [place] - Please have your primary care provider monitoring platelet count, platelet count on discharge 55,000 - Please have your primary care provider monitor your liver function, AST was 88, ALT 136 - Please follow-up with your primary care provider next week for blood pressure check - Please follow-up with primary care provider for blood sugar check - Please talk to primary care provider about metformin or Jardiance or Ozempic for your hyperglycemia - Hyperglycemia, prediabetes hemoglobin A1c 6.2 - Your CT scan shows a 6 mm enhancing pancreatic lesion, recommend follow-up with GI, MRI of the pancreas - For your prostatomegaly, please follow-up with primary care provider for prostate examination, check PSA, referral for urology evaluation, prostate measured 6.9 cm - You do have constipation, please use a bowel regimen daily - For your pneumonia, please hydrate well, monitor for fevers - If any fevers or worsening shortness of breath go to emergency room - Monitor for risk of blood clots if you develop sudden onset shortness of breath, coughing up blood, calf pain or calf swelling please immediately emergency room -Hopefully for your prediabetes, your insulin requirements will be temporary given recent steroid use -Please monitor your blood sugars closely -Monitor your blood sugars 3 times daily as after meals -Please record your blood sugars, and a blood sugar log -For your NovoLog -Please inject blood sugar after meals based on sliding scale provided -Do not inject insulin if you do not eat as hypoglycemia kills -This is a NovoLog sliding scale -Insulin sliding ?fingerstick? Insulin ?141-180?0 units/sq 181-220?2 units/sq ?221-260?4 units/sq ?261-300 6 units/sq ?301-350?8 units/sq ?351-400 10 units/sq ?401-450?12 units/sq >450? 14units/sq -If your blood sugar is greater than 500 go to the emergency room -If your blood sugar is less than 60 or at anytime you feel lightheaded or dizzy or diaphoretic or have chest palpitations check your blood sugar, and eat a hard candy or drink orange juice and go immediately to the emergency room -Remember hypoglycemia kills, so if his blood sugar is less than 60 we have to increase it by taking in a sugary meal such as a hard candy or orange juice and go to the emergency room -If you have any questions please call us where here to help Physical Exam Const: COMMON NORMALS: no acute distress and patient oriented x3 Resp: COMMON NORMALS: normal respiratory effort, No retractions, No use of accessory muscles and clear to auscultation bilaterally AUSCULTATION: clear to auscultation bilaterally Cardio: COMMON NORMALS: regular rate, regular rhythm, S1 normal heart sound present and S2 normal heart sound present RATE: regular rate RHYTHM: regular rhythm HEART SOUNDS: S1 normal heart sound present and S2 normal heart sound present GI: COMMON NORMALS: Normal to inspection, nondistended, normoactive bowel sounds present and non-tender Extremity: COMMON NORMALS: no pedal edema Neuro: COMMON NORMALS: patient oriented x3 Psych: COMMON NORMALS: mental status grossly normal Discharge Data Studies Completed and Pending Completed Studies During Hospitalization Category Date Time Status CT abdomen pelvis w con* [id number] Stat Cat Scan 11/12/24 13:[address] head wo con* [id number] Stat Cat Scan 11/13/24 10:35 Completed FL guided lumbarpunc dx* [id number] Stat Exams 11/13/24 17:41 Completed XR chest 1V portable [id number] Stat Exams 11/12/24 11:23 Completed US gall bladder [id number] Stat Ultrasound 11/12/24 13:59 Completed Pending at discharge Category Date Time Status Blood Culture Stat Lab 11/12/24 15:43 Results CSF Culture & Gram Stain Stat Lab 11/13/24 11:24 Results Ehrlichia Chaffeensis PCR Routine Lab 11/13/24 14:43 Received Lymes Disease Antibodies CSF Stat Lab 11/12/24 17:41 Received Miscellaneous Test Routine Lab 11/13/24 11:24 Received [place] Enceph.Virus IFA CSF Stat Lab 11/12/24 17:41 Received Tick Panel Stat Lab 11/12/24 17:35 Results Radiology Impressions Chest X-Ray 11/12/24 11:23 IMPRESSION: Limited technique with low lung volumes; mild left basilar pneumonitis can not be excluded. Abdomen/Pelvis CT 11/12/24 13:58 IMPRESSION: 1. Markedly enlarged prostate. Recommend correlation PSA. 2. Mild hepatomegaly with fatty liver. 3. Trace bilateral pleural fluid with bibasilar atelectasis. 4. 6 mm enhancing pancreatic lesion. Recommend 6-month follow-up contrast-enhanced CT abdomen pelvis with pancreatic protocol. 5. Rectosigmoid constipation. 6. RIGHT renal cyst measuring two-point 6:00 p.m. 7. Small esophageal hiatal hernia. Gallbladder Ultrasound 11/12/24 13:59 IMPRESSION: 1. Negative gallbladder. 2. No hepatobiliary duct dilatation. Head CT 11/13/24 10:35 IMPRESSION: 1. No evidence of intracranial hemorrhage or mass effect. 2. No acute intracranial findings. Lumbar Puncture Fluoroscopy 11/13/24 17:41 IMPRESSION: Uncomplicated lumbar puncture for CSF. Laboratory Results WBC 6.93 10^3/uL (3.29-11.43) 11/16/24 05:18 RBC 5.33 10^6/uL (3.85-5.65) 11/16/24 05:18 Hgb 14.20 g/dL (11.27-16.99) 11/16/24 05:18 Hct 42.9 % (37-53) 11/16/24 05:18 MCV 80.5 fl (82-101) L 11/16/24 05:18 MCH 26.6 pg (27-33) L 11/16/24 05:18 MCHC 33.1 g/dL (30-55) 11/16/24 05:18 RDW 14.5 % (12.1-15.1) 11/16/24 05:18 Plt Count 55 10^3/cmm (157-399) L 11/16/24 05:18 MPV 12.1 fL (7.4-10.4) H 11/16/24 05:18 Neut % (Auto) 35.7 % 11/16/24 05:18 Lymph % (Auto) 53.8 % 11/16/24 05:18 Weber % (Auto) 9.5 % 11/16/24 05:18 Eos % (Auto) 0.0 % 11/16/24 05:18 Baso % (Auto) 0.3 % 11/16/24 05:18 Neut # (Auto) 2.47 10^3/uL (1.8-7.7) 11/16/24 05:18 Lymph # (Auto) 3.7 10^3/uL (0.8-4.8) 11/16/24 05:18 Weber # (Auto) 0.7 10^3/uL (0.2-0.9) 11/16/24 05:18 Eos # (Auto) 0.0 10^3/uL (0.0-0.8) 11/16/24 05:18 Baso # (Auto) 0.0 10^3/uL (0.0-0.1) 11/16/24 05:18 Nucleated RBC % (auto) 0 % 11/16/24 05:18 Nucleated RBCs # 0.0 /100WBC 11/16/24 05:18 Sodium 136 mmol/L (136-145) 11/16/24 05:18 Potassium 3.8 mmol/L (3.5-5.1) 11/16/24 05:18 Chloride 103 mmol/L (98-107) 11/16/24 05:18 Carbon Dioxide 22 mmol/L (22-29) 11/16/24 05:18 Anion Gap 14.8 (5-19) 11/16/24 05:18 BUN 19 mg/dL (8-23) 11/16/24 05:18 Creatinine 0.8 mg/dL (0.7-1.2) 11/16/24 05:18 GFR Calculation Not Reportable 11/16/24 05:18 Glucose 165 mg/dL (65-115) H 11/16/24 05:18 POC Glucose 140 mg/dL (70-110) H 11/16/24 10:28 Estimat Average Glucose 131 11/12/24 11:49 Hemoglobin A1c 6.2 % (4.0-6.0) H 11/12/24 11:49 Calculated Osmolality 288 mOsm/kg (285-295) 11/16/24 05:18 Lactic Acid 2.0 mmol/L (0.5-2.2) 11/12/24 15:40 Calcium 7.5 mg/dL (8.5-10.5) L 11/16/24 05:18 Total Bilirubin 0.4 mg/dL (0.15-1.2) 11/16/24 05:18 AST 88 U/L (0-40) H 11/16/24 05:18 ALT 136 U/L (0-41) H 11/16/24 05:18 Alkaline Phosphatase 125 U/L (40-130) 11/16/24 05:18 Creatine Kinase 130 U/L (39-308) 11/12/24 11:49 C-Reactive Protein 121.3 mg/L (0.0-4.9) H 11/12/24 11:49 Total Protein 5.2 g/dL (6.6-8.7) L 11/16/24 05:18 Albumin 2.6 g/dL (3.5-5.2) L 11/16/24 05:18 Globulin 2.6 g/dL (1.3-4.6) 11/16/24 05:18 Lipase 19 U/L (13-60) 11/12/24 11:49 Lipase 20 U/L (13-60) 11/12/24 11:49 Lipase 20 U/L (13-60) 11/12/24 11:49 Procalcitonin 0.84 ng/mL (0-0.5) H 11/12/24 11:49 TSH 4.58 uIU/mL (0.27-4.20) H 11/12/24 11:49 Urine Color Dark yellow (Yellow) A 11/12/24 13:30 Urine Appearance Cloudy (CLEAR) A 11/12/24 13:30 Urine pH 5.5 (5-7) 11/12/24 13:30 Ur Specific [place] 1.031 (1.005-1.030) H 11/12/24 13:30 Urine Protein 2+ (Negative) A 11/12/24 13:30 Urine Glucose (UA) Negative (Normal) 11/12/24 13:30 Urine Ketones 2+ (Negative) H 11/12/24 13:30 Urine Blood 1+ (Negative) A 11/12/24 13:30 Urine Nitrate Negative (Negative) 11/12/24 13:30 Urine Bilirubin 1+ (Negative) H 11/12/24 13:30 Urine Urobilinogen 1.0 mg/dL (Negative) 11/12/24 13:30 Ur Leukocyte Esterase Trace (Negative) A 11/12/24 13:30 Urine RBC 0-2 /hpf (0-2) 11/12/24 13:30 Urine WBC 0-5 /hpf (0-5) 11/12/24 13:30 Ur Squamous Epith Cells 6-10 /hpf (0-5) 11/12/24 13:30 Amorphous Sediment Not Reportable 11/12/24 13:30 Urine Bacteria None seen /hpf (NONE) 11/12/24 13:30 Hyaline Casts 12.41 /lpf 11/12/24 13:30 CSF Appearance Clear (CLEAR) 11/13/24 11:24 CSF Color Colorless (COLORLESS) 11/13/24 11:24 CSF Specific [place] 1.006 11/13/24 11:24 CSF WBC 82 /uL (0-5) H 11/13/24 11:24 CSF RBC 0 10^3/uL (0-0) 11/13/24 11:24 CSF Mononuclear # Auto 0.079 10^3/uL (50-90) L 11/13/24 11:24 CSF Mononuclear WBCs % 96 % (50-90) H 11/13/24 11:24 CSF Polynuclear WBCs # 0.003 10^3/uL (0-10) 11/13/24 11:24 CSF Polynuclear WBCs % 4 % (0-10) 11/13/24 11:24 CSF Diff Comment Yes 11/13/24 11:24 CSF Glucose 63 mg/dL (40-70) 11/13/24 11:24 CSF Total Protein 63 mg/dL (15-45) H 11/13/24 11:24 Vancomycin Trough 9.0 ug/mL (10-15) L 11/14/24 16:37 Lyme Ab (Western Blot) <0.90 index 11/12/24 17:35 CMV IgG Ab 4.60 U/mL H 11/12/24 17:35 CMV IgM Ab <30.00 AU/mL 11/12/24 17:35 Hepatitis A IgM Ab Non-reactive (Nonreactive) 11/12/24 17:35 Hep Bs Antigen Non-reactive (Nonreactive) 11/12/24 17:35 Hep B Core IgM Ab Non-reactive (Nonreactive) 11/12/24 17:35 Hepatitis C Antibody Non-reactive (Nonreactive) 11/12/24 17:35 Herpes Simplex Source Results below 11/13/24 11:24 HIV 1&2 Ab & HIV 1 Ag Non-reactive (Non-Reactiv) 11/12/24 11:49 HIV 1&2 Antibody Non-reactive (Non-Reactiv) 11/12/24 11:49 Influenza A (PCR) Negative (Negative) 11/12/24 15:35 Influenza Type B (PCR) Negative (Negative) 11/12/24 15:35 RSV (PCR) Negative (Negative) 11/12/24 15:35 SARS-CoV-2 (PCR) Negative (Negative) 11/12/24 15:35 HSV 1 DNA Not detected (Not Detected) 11/13/24 11:24 HSV 2 DNA Not detected (Not Detected) 11/13/24 11:24 Vitals Last Vital Signs Temp 97.9 F 11/16/24 07:28 Pulse 70 11/16/24 11:23 Resp 16 11/16/24 07:28 BP 150/90 11/16/24 11:23 Pulse Ox 90 11/16/24 11:23 O2 Del Method Room Air 11/16/24 07:28 O2 Flow Rate 2 11/15/24 19:40 Discharge Plan Discharge Patient Disposition: Home Condition: Stable Prescriptions: New (DME) glucometer testing kit See Rx Instructions .Route .MEDSUPPLY Qty: 1 0RF Rx Instructions: lancets #100 strips#100 check bs TID doxycycline hyclate 100 mg tablet 100 mg PO BID 10 Days Qty: 20 0RF levofloxacin 750 mg tablet 750 mg PO DAILY 5 Days Qty: 5 0RF Probiotic 3 billion cell capsule 3,000 mmu cells PO DAILY 10 Days Qty: 10 0RF Rx Instructions: administer with a meal albuterol sulfate [Ventolin HFA] 90 mcg/actuation HFA aerosol inhaler 1 inh inhalation Q6H PRN (Reason: shortness of breath or wheezing) Qty: 8.5 0RF insulin aspart U-100 [Novolog FlexPen U-100 Insulin] 100 unit/mL (3 mL) insulin pen See Rx Instructions .ROUTE .COMPLEX Qty: 15 0RF Rx Instructions: Inject, subcut, 3 times daily, after meals, based on sliding scale provided Continued tamsulosin 0.4 mg capsule 0.4 mg PO QPM mupirocin 2 % ointment 1 applic topical BID PRN (Reason: Skin Irritation) Discharge Orders: Discharge Order (Routine); Ordered 11/16/24 Ordered By: Harjinder Villareal Referrals: Leory Tran MD [Referring, Internal Medicine] - 2 weeks Referral Note: pancreatic lesion Jason Gay MD [Referring, Urology] - 1 month Referral Note: Moose Love DO [Primary Care Provider, [facility]] - 11/20/24 10:40 am Referral Note: Discharge Diet: Cardiac Discharge Activity: Resume usual activity Patient Instructions: Doxycycline (By mouth), Albuterol (By breathing) (ProAir, AccuNeb, Proventil, Proventil..., Levofloxacin (By mouth), Insulin Aspart, Recombinant (By injection) (Novolog, Novolog..., Probiotic (By mouth), Bacterial Meningitis (DC), Thrombocytopenia (DC), Prediabetes (GEN), Opioid Safety Activity Restrictions/Additional Instructions: - Please have your primary care provider monitoring platelet count, platelet count on discharge 55,000 - Please have your primary care provider monitor your liver function, AST was 88, ALT 136 - Please follow-up with your primary care provider next week for blood pressure check - Please follow-up with primary care provider for blood sugar check - Please talk to primary care provider about metformin or Jardiance or Ozempic for your hyperglycemia - Hyperglycemia, prediabetes hemoglobin A1c 6.2 - Your CT scan shows a 6 mm enhancing pancreatic lesion, recommend follow-up with GI, MRI of the pancreas - For your prostatomegaly, please follow-up with primary care provider for prostate examination, check PSA, referral for urology evaluation, prostate measured 6.9 cm - You do have constipation, please use a bowel regimen daily - For your pneumonia, please hydrate well, monitor for fevers - If any fevers or worsening shortness of breath go to emergency room - Monitor for risk of blood clots if you develop sudden onset shortness of breath, coughing up blood, calf pain or calf swelling please immediately emergency room -Hopefully for your prediabetes, your insulin requirements will be temporary given recent steroid use -Please monitor your blood sugars closely -Monitor your blood sugars 3 times daily as after meals -Please record your blood sugars, and a blood sugar log -For your NovoLog -Please inject blood sugar after meals based on sliding scale provided -Do not inject insulin if you do not eat as hypoglycemia kills -This is a NovoLog sliding scale -Insulin sliding ?fingerstick? Insulin ?141-180?0 units/sq 181-220?2 units/sq ?221-260?4 units/sq ?261-300 6 units/sq ?301-350?8 units/sq ?351-400 10 units/sq ?401-450?12 units/sq >450? 14units/sq -If your blood sugar is greater than 500 go to the emergency room -If your blood sugar is less than 60 or at anytime you feel lightheaded or dizzy or diaphoretic or have chest palpitations check your blood sugar, and eat a hard candy or drink orange juice and go immediately to the emergency room -Remember hypoglycemia kills, so if his blood sugar is less than 60 we have to increase it by taking in a sugary meal such as a hard candy or orange juice and go to the emergency room -If you have any questions please call us where here to help Discharge Attestations Time Spent in Discharge Care*: greater than 30 min Quality Metrics Clinical Quality Measures [ No reported AMI, CVA or VTE this stay] Coding Level of Care Code 98548 Total time (in minutes) for Discharge: 45 Diagnoses 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
[2024-11-16 19:30] LABS: Lyme Disease AB (IGG),IBL NO BANDS DETECTED; Lyme Disease AB (IGM), IBL NO BANDS DETECTED
[2024-11-17 22:25] LABS: St. Louis Enceph.Virus IGG CSF <1:1; St. Louis Enceph.Virus IGM CSF <1:1
== END 2024-11-16 11:24 | disposition home or self-care (01) | DRG 871 ==
LOC: ER 13:51 → ER IP 18:49 → MEDSURG 19:00
PROVIDERS: Emergency Medicine; Physician Assistant; Admitting Provider Family Medicine; Emergency Provider Family Medicine; PCP Family Medicine; Visit Provider Family Medicine
DX: A41.9 Sepsis, unspecified organism (principal); A84.9 Tick-borne viral encephalitis, unspecified; J18.9 Pneumonia, unspecified organism; E87.1 Hypo-osmolality and hyponatremia; D69.59 Other secondary thrombocytopenia; E86.0 Dehydration; N40.0 Benign prostatic hyperplasia without lower urinary tract symptoms; B96.89 Other specified bacterial agents as the cause of diseases classified elsewhere; K86.9 Disease of pancreas, unspecified; E11.65 Type 2 diabetes mellitus with hyperglycemia; R74.8 Abnormal levels of other serum enzymes; Z79.4 Long term (current) use of insulin
CPT/HCPCS: 36415; 36416; 62328; 70450; 71045; 74177; 76705; 80053; 80074; 80202; 80503; 81001; 82550; 82945; 82962; 83036; 83605; 83690; 84145; 84157; 84315; 84443; 85025; 86140; 86617; 86618; 86653; 86666; 86757; 87040; 87070; 87075; 87205; 87530; 87637; 87798; 87806; 89050; 93005; 94664; 96365; 96366; 96367; 96372; 99285; J0290; J0696; J1100; J1815; J2470; J3370; J3490; J7030; J7050; J9999

== ENCOUNTER → 2024-11-26 14:39 | Outpatient (BNVA) | payer MEDICARE, SELFPAY | PROVIDERS: PCP Family Medicine; Visit Provider Family Medicine | DX: D69.6 Thrombocytopenia, unspecified (principal); R74.8 Abnormal levels of other serum enzymes; N40.0 Benign prostatic hyperplasia without lower urinary tract symptoms | CPT/HCPCS: 80053; 84153; 85025 ==

== ENCOUNTER → 2025-03-05 14:45 | Outpatient (BNVA) | payer MEDICARE, SELFPAY | PROVIDERS: PCP Family Medicine; Visit Provider Family Medicine | DX: K86.89 Other specified diseases of pancreas (principal); N40.0 Benign prostatic hyperplasia without lower urinary tract symptoms; R97.20 Elevated prostate specific antigen [PSA] | CPT/HCPCS: 80053; G0103 ==

== ENCOUNTER 2025-03-18 15:24 | Outpatient (CLI) | payer MEDICARE, SELFPAY ==
--- NOTE | 2025-03-18 16:30 | CT_ITS ---
WS: [id number] CT ABDOMEN AND PELVIS WITH CONTRAST HISTORY: K86.89 - Other specified diseases of pancreas TECHNIQUE: Imaging performed of the abdomen and pelvis with IV contrast. Two phase imaging of the abdomen. Coronal and sagittal reformats are submitted. All CT scans at [facility] use at least one of these dose optimization techniques: automated exposure control; mA and/or kV adjustment per patient size (includes targeted exams where dose is matched to clinical indication); or iterative reconstruction. IV CONTRAST: Omnipaque 350; 100 mL IV. Oral contrast: Yes. DLP: 741.55 mGy.cm COMPARISON: 11/12/2024 Lower thorax: Pulmonary hyperexpansion. No nodule. Heart is normal size. Moderate size hiatal hernia. Liver/biliary system: Normal size with no intrahepatic dilatation. Gallbladder: Normal. No gallstones or wall thickening. No pericholecystic fluid. Pancreas: Normal size pancreas. Reidentified is a 5.4 mm arterial enhancing nodule along the anterior body of the pancreas. Similar in size as compared to the prior study of 11/12/2024. No additional pancreatic abnormality. Spleen: Normal size spleen. No mass or infarct. Adrenal glands: Normal. Right kidney: Nonenhancing 2.5 cm cyst from the posterior RIGHT kidney. No obstruction. Left kidney: 2 mm nonenhancing calcification lower pole. No obstruction or solid mass. Aorta: Mild atherosclerosis with no aneurysm. Lymphadenopathy: None. Free fluid: None. GI tract: No GI tract obstruction. No small bowel obstruction. Diffuse constipation. Normal appendix. Abdominal wall: Fat containing umbilical hernia. Pelvis: Prostate gland is markedly enlarged and heterogeneous encroaching into the urinary bladder. Mild trabecular thickening of the urinary bladder wall. Fat-containing inguinal canals. Bones: Mild increase in lumbar lordosis. Advanced degenerative disc disease at L5-S1. CT/CT abdomen pelvis w con* [id number] IMPRESSION: 1. Stable arterially enhancing 5.4 mm pancreatic mass. 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 If this is asymptomatic continued serial CT im aging follow-up is recommended. Follow-up CT is should be performed with arteri al and venous phase imaging. Consider follow-up in 6 months. If patient is symp tomatic from neuroendocrine tumor surgical evaluation recommended. 2. Emphysema. 3. RIGHT renal cyst. 4. No GI tract obstruction. 5. Heterogeneous enlarged prostate gland. 6. No metastatic lesions in the liver.
[2025-03-18] MEDS: iohexol 350 mg/mL 500 mL Btl (per mL) IV (16:39)
[2025-03-18] MEDS: iohexol 350 mg/mL 500 mL Btl (per mL) PO (16:39)
== END 2025-03-18 15:25 | disposition home or self-care (01) ==
LOC: RAD 15:24
PROVIDERS: PCP Family Medicine; Visit Provider Family Medicine
DX: K86.89 Other specified diseases of pancreas (principal); K44.9 Diaphragmatic hernia without obstruction or gangrene; I70.0 Atherosclerosis of aorta; J43.9 Emphysema, unspecified; N28.1 Cyst of kidney, acquired; N40.0 Benign prostatic hyperplasia without lower urinary tract symptoms
CPT/HCPCS: 74177